=== PATIENT | male | born 2000 | race Two or more races ===

== ENCOUNTER 2024-11-13 20:33 | Emergency (ER) | payer MEDICAID, SELFPAY ==
[2024-11-13 20:34] VITALS: BMI 34.9
[2024-11-13 20:53] VITALS: BP 133/87; PULSE 94; RESP 18; TEMP 36.9; O2SAT 97
[2024-11-13] MEDS: Erythromycin Op Oint 0.5% 1 GM PACKET LEFT EYE (22:59)
[2024-11-13] MEDS: FLUORESCEIN SOD 1 MG STRP LEFT EYE (22:59)
--- NOTE | 2024-11-14 02:54 | PD.EDEYE ---
ED Eye Problem RME/HPI General Chief complaint: Eye Problems Stated complaint: SOMETHING WENT INSIDE LEFT EYE Time Seen by Provider: 11/13/24 21:25 Arrival date/time: 11/13/24 20:33 24M with no significant PMH presents to ED with L eye irritation after something went into his eye while working in the [employer]. Patient denies vision changes. Limitations: no limitations Related Data Previous Rx's ?Medication ?Instructions ?Recorded Hydrocodone/Acetaminophen * (NORCO 1 tab PO Q6H PRN ABDOMINAL PAIN 09/16/16 5/325 *) #15 tabs erythromycin 5 mg/gram (0.5 %) eye 0.5 inch ophthalmic (eye) QID #3.5 11/13/24 ointment grams Allergies Allergy/AdvReac Type Severity Reaction Status Date / Time No Known Allergies Allergy Verified 11/13/24 20:33 Review of Systems Review of Systems Systems Reviewed: All systems reviewed, normal except as documented Constitutional Constitutional: Reports system reviewed and no additional complaints, except as documented, Denies fever(s) and Denies headache(s) Eyes Eyes: Reports as per HPI and Reports irritation ENT Ears, Nose, Mouth, and Throat: Denies disequilibrium and Denies headache(s) Cardiovascular Cardiovascular: Reports system reviewed and no additional complaints, except as documented, Denies chest pain and Denies dyspnea Respiratory Respiratory: Reports system reviewed and no additional complaints, except as documented, Denies cough and Denies dyspnea Gastrointestinal Gastrointestinal: Reports system reviewed and no additional complaints, except as documented, Denies abdominal pain, Denies nausea and Denies vomiting Neurologic Neurologic: Reports system reviewed and no additional complaints, except as documented, Denies confusion, Denies disequilibrium and Denies headache(s) Psychiatric Psychiatric: Denies confusion Past Medical History Social History SMOKING STATUS: Never smoker ED Exam General Limitations: Present no limitations General appearance: Present alert and in no apparent distress Head Head exam: Present atraumatic Eye Eye exam: Present PERRL and EOMI Expanded Eye Exam Sclera/Conjunctival: left: injection ENT ENT exam: Present normal exam, normal oropharynx and mucous membranes moist Neck Neck exam: Present normal inspection, full ROM and trachea midline Chest Chest inspection: Present normal inspection and symmetric chest wall rise Respiratory Respiratory exam: Present normal lung sounds bilaterally Cardiovascular Cardiovascular exam: Present regular rate, normal rhythm and normal heart sounds Abdominal Exam Abdominal exam: Present soft and normal bowel sounds Extremities Exam Extremities exam: Present normal inspection and full ROM Back Exam Back exam: Present normal inspection and full ROM Neurological Exam Neurological exam: Present alert, oriented X3 and CN II-XII intact Psychiatric Psychiatric exam: Present normal affect and normal mood Skin Skin exam: Present warm, dry, intact and normal color Course Quality Measures none Orders Category Date Time Status ED Eye Irrigation ONCE Care 11/13/24 23:04 Completed Ruiz Lamp to Bedside X1 Care 11/13/24 21:25 Completed Erythromycin Op Oint 0.5% Med 11/13/24 22:22 Discontinued 1 gm LEFT EYE X1 ONE Fluorescein Sodium [Bio-Shy] Med 11/13/24 23:00 Discontinued 1 mg LEFT EYE X1 ONE Vital Signs Vital signs: Vital Signs Temperature 98.5 F 11/13/24 20:53 Pulse Rate 94 11/13/24 20:53 Respiratory Rate 18 11/13/24 20:53 Blood Pressure 133/87 H 11/13/24 20:53 Pulse Oximetry (%) 97 11/13/24 20:53 Oxygen Delivery Method Room Air 11/13/24 20:53 O2 at 97% on RA and WNLs Eye MDM Narrative MDM Narrative:: 24M with no significant PMH presents to ED with L eye irritation after something went into his eye while working in the [employer]. Patient denies vision changes. Physical exam reveals L eye conjunctivitis, but no discharge. Normal pupil response and EOM. Patient is afebrile, calm, and alert. Eye irrigated. Wood's lamp exam reveals no gross abnormalities. Meds and cancer genetic counselor given. Patient data External records reviewed:: [facility] previous records Clinical information provided by:: patient Social determinants that could affect healthcare access:: none Patient has the following chronic illnesses:: none How is presenting disease/condition affected by chronic disease/condition?: no chronic disease Evaluation data The following diagnostics were reviewed and interpreted by me:: other (specify) (none) Lab and/or radiology exams considered but not ordered:: not ordered Interpretation Summary: n/a Medications / Prescriptions Medications or Prescriptions considered but not ordered:: ordered Medication administrations:: Medication Administration History Discontinued Medications Erythromycin (Erythromycin Op Oint 0.5% 1 Gm Packet) 1 gm LEFT EYE X1 ONE Stop: 11/13/24 22:23 Last Admin: 11/13/24 22:59 Dose: 1 gm Documented By: ROBERTH Co-signed By: DOMO Fluorescein Sodium (Fluorescein Sod 1 Mg Strp) 1 mg LEFT EYE X1 ONE Stop: 11/13/24 23:01 Last Admin: 11/13/24 22:59 Dose: 1 mg Documented By: ROBERTH Comments: ADMINISTERED BY PROVIDER above Consultations Consultation(s) initiated? (list below): No Diagnosis Eye Problem Differential Diagnosis: corneal abrasion, conjunctivitis, acute iritis, hyphema, periorbital cellulitis, subconjunctival hemorrhage, glaucoma, corneal ulcer and ruptured globe Most likely diagnosis given after review of the tests above:: conjunctivitis Admission Indicated Admission indicated?: not indicated Admission Request Was there a request for admission?: No Disposition Plan Disposition Plan: Discharge Discharge Attestation Discharge Attestation: The patient and all family members were given an opportunity to ask questions and understood the discharge instructions. Discharge instructions specifically effects, indications for sooner follow up or return to the emergency department, and the expected course of current diagnosis. Patient condition: Stable Discharge Plan Plan Patient Disposition: HOME (Self Care) Discharge Disposition comment: Stable Prescriptions/Referrals Prescriptions/Med Rec: New erythromycin 5 mg/gram (0.5 %) ointment 0.5 inch ophthalmic (eye) QID Qty: 3.5 0RF No Action Hydrocodone/Acetaminophen * (NORCO 5/325 *) 1 TAB tablet 1 tab PO Q6H PRN (Reason: ABDOMINAL PAIN) Qty: 15 0RF Referrals: Slade Thibodeaux MD [Primary Care Provider] - In 1 week Problem List Clinical Impression: Eye irritation Patient/Caregiver Discharge Instructions Education Materials: Corneal Injury Additional Instructions: Please follow-up with PCP within 24-48 hours and return immediately if symptoms worsen. See eye doctor soon. Print Language: [place] Stand Alone Forms: Patient Portal Info Letter RUSSELL/KALIA Supervising Physician RUSSELL/KALIA Supervising Physician: Dr. Garcia
== END 2024-11-13 23:32 | disposition home or self-care (01) ==
PROVIDERS: Emergency Provider Emergency Medicine; PCP Family Medicine
DX: H57.89 Other specified disorders of eye and adnexa (principal)
CPT/HCPCS: 99283; A9270